=== PATIENT | male | born 1935 | race Asian ===

== ENCOUNTER 2016-06-26 15:39 | Outpatient (CLI) | payer OTHER ==
[2016-06-26] MEDS ORDERED: CELEXA20 MG PO (16:05)
[2016-06-26] MEDS ORDERED: ROSU10TA PO (16:05)
[2016-06-26] MEDS ORDERED: TEMA30CA18 PO (16:06)
[2016-06-26] MEDS ORDERED: AMLO2.5T PO (16:06)
[2016-06-26] MEDS ORDERED: ASPIRIN CHLD81 MG OR (16:07)
== END 2016-06-26 15:43 | disposition short-term general hospital (02) ==
LOC: AMB 15:39
DX: R41.82 Altered mental status, unspecified (principal)
CPT/HCPCS: A0425; A0427

== ENCOUNTER 2016-06-26 15:51 | Emergency (ER) | payer OTHER ==
[~2016-06-26] VITALS: Ht 182.9 cm; Wt 59.0 kg
[2016-06-26] MEDS ORDERED: CELEXA20 MG PO (16:05)
[2016-06-26] MEDS ORDERED: ROSU10TA PO (16:05)
[2016-06-26] MEDS ORDERED: AMLO2.5T PO (16:06)
[2016-06-26] MEDS ORDERED: TEMA30CA18 PO (16:06)
[2016-06-26] MEDS ORDERED: ASPIRIN CHLD81 MG OR (16:07)
[2016-06-26 16:29] LABS: POTASSIUM 5.6 mmol/L (3.6-5.2)
[2016-06-26 16:32] LABS: PLATELET COUNT 223 K/uL (142-355)
[2016-06-26 20:26] VITALS: BP 145/77; TEMP 98.2
== END 2016-06-26 20:27 | disposition short-term general hospital (02) ==
LOC: ED 15:51
DX: E13.10 Other specified diabetes mellitus with ketoacidosis without coma (principal); S00.83XA Contusion of other part of head, initial encounter; E11.65 Type 2 diabetes mellitus with hyperglycemia; N18.9 Chronic kidney disease, unspecified; C61 Malignant neoplasm of prostate; S06.5X0A Traumatic subdural hemorrhage without loss of consciousness, initial encounter; R00.0 Tachycardia, unspecified; W01.198A Fall on same level from slipping, tripping and stumbling with subsequent striking against other object, initial encounter; Y92.89 Other specified places as the place of occurrence of the external cause
CPT/HCPCS: 36415; 80053; 81002; 82947; 85027; 93005; 96365; 99285; J1815

== ENCOUNTER 2016-06-26 20:34 | Outpatient (CLI) | payer OTHER ==
[~2016-06-26 20:34] MED LIST: AMLO2.5T PO; ASPIRIN CHLD81 MG OR; CELEXA20 MG PO; ROSU10TA PO; TEMA30CA18 PO
== END 2016-06-26 21:40 | disposition short-term general hospital (02) ==
LOC: AMB 20:34
DX: E13.10 Other specified diabetes mellitus with ketoacidosis without coma (principal); S00.83XA Contusion of other part of head, initial encounter; E11.65 Type 2 diabetes mellitus with hyperglycemia; N18.9 Chronic kidney disease, unspecified; C61 Malignant neoplasm of prostate; S06.5X0A Traumatic subdural hemorrhage without loss of consciousness, initial encounter; R00.0 Tachycardia, unspecified; W01.198A Fall on same level from slipping, tripping and stumbling with subsequent striking against other object, initial encounter; Y92.89 Other specified places as the place of occurrence of the external cause
CPT/HCPCS: A0425; A0427